=== PATIENT | male | born 1975 | race Hispanic/Latino ===

== ENCOUNTER 2018-04-12 07:15 | Day surgery (SDC) | payer BC ==
[2018-04-11 08:33] VITALS: BMI 29.5
[2018-04-12] MEDS ORDERED: Midazolam 2 MG/2 ML VIAL ONE (08:49)
[2018-04-12] MEDS ORDERED: ceFAZolin IV 1 gm in Dextrose 1 GM/50 ML BAG IVPB ONE (08:49)
[2018-04-12] MEDS ORDERED: Lidocaine Hydrochloride 20 ML INJ ONE (08:49)
[2018-04-12] MEDS ORDERED: Propofol 10 mg/ml Inj (20 ML) ONE (09:02)
[2018-04-12] MEDS ORDERED: Oxycodone/Acetaminophen 5/325 mg Tab PO PRN ×2 (09:50)
--- NOTE | 2018-04-12 09:54 | PCM.SURG1 ---
Surgeon's Initial Post Op Note - Surgeon's Notes Surgeon: Mauricio Corbett MD Security Trainer: Davis Winters PA-C Type of Anesthesia: IV Sedation Anesthesia Administered By: Sari Sanches CRNA/Clay WEBBER Pre-Operative Diagnosis: Left hand third digit extensor tendon rupture Operative Findings: see complete operative report Post-Operative Diagnosis: as above Operation Performed: Left hand third digit extensor tendon repair and pinning Specimen/Specimens Removed: none Estimated Blood Loss: EBL {In ML}: 0 Blood Products Given: N/A Drains Used: No Drains Post-Op Condition: Good Date of Surgery/Procedure: 04/12/18 Time of Surgery/Procedure: 09:05
[2018-04-12 10:12] VITALS: O2SAT 100
[2018-04-12 10:36] VITALS: TEMP 97.6
[2018-04-12 12:04] VITALS: BP 124/80; PULSE 59; RESP 18
--- NOTE | 2018-04-12 14:12 | RAD ---
Date of service: 04/12/2018 PROCEDURE: Intraoperative Fluoroscopy. HISTORY: EXTENSOR MUSCLE INJURY LT. MIDDLE FINGER FINDINGS: Fluoroscopic assistance was provided. Fluoroscopy time = 6.0 sec. Radiation dose = 0.04 mGy. Please refer to the operative report from [facility].
--- NOTE | 2018-04-15 20:40 | OP ---
PROCEDURE DATE: 04/12/2018 SURGEON: Mauricio Corbett MD. MAINTENANCE JOURNEYMAN: HARRIS Cannon. PREOPERATIVE DIAGNOSES: 1. Left third digit extensor tendon rupture. 2. Left third digit interphalangeal joint subluxation. POSTOPERATIVE DIAGNOSES: 1. Left third digit extensor tendon rupture. 2. Left third digit interphalangeal joint subluxation. PROCEDURES: 1. Extensor tendon primary repair, 40560. 2. Open reduction and pinning of the left third digit interphalangeal joint, 16998. 3. Extensor tendon tenolysis of the third digit, 29590. ANESTHESIA: Local with IV sedation. ESTIMATED BLOOD LOSS: Minimal. COMPLICATIONS: None. DISPOSITION: Stable to recovery room. DESCRIPTION OF PROCEDURE: The patient was brought to the operating room and placed supine on the operating room table. After adequate regional anesthesia was given and prophylactic antibiotics, a well-padded non-sterile tourniquet was placed in the patient's left upper extremity. The entire extremity was then prepped and draped in standard surgical fashion and a time-out was performed. The left arm was elevated and exsanguinated, and the tourniquet was inflated to 250 mmHg. Next, dorsal incision over the distal interphalangeal joint was outlined. An incision was made to the skin only. All superficial veins were cauterized. Dissection was carried out to identify the extensor tendon of the digit. There was a full rupture of the extensor tendon at the level of the DIP and retraction. [place] was used to free up the extensor tendon from scarring of the skin and soft tissues. Tenolysis was performed with tenotomy scissors to the level of the MCP joint. The extensor tendon was then retracted and pulled back to its origin of the distal phalanx. The dorsal interphalangeal joint was then exposed and found to be subluxed. It was reduced dorsally and held in place for fluoroscopic guidance. A 2.8 mm K-wire was advanced across the joint from distal to the proximal phalanx. Joint was well reduced and congruent. The wire was cut short protruding through the skin and bent. Next, the extensor tendon repair was repaired primarily to its stump under distal phalanx using multiple 4-0 Vicryl sutures in horizontal configuration. There is no gapping at the repair site. The tourniquet was deflated. Hemostasis was obtained. Skin was then closed with 4-0 nylon interrupted sutures. Sterile dressing was applied consisting of fluffs, 4x4s, Xeroform, and volar digital splint. The patient tolerated the procedure well and was returned to recovery room in excellent condition. Mauricio Corbett MD
== END 2018-04-12 11:26 | disposition home or self-care (01) ==
LOC: C.SDS 07:15
PROVIDERS: ATTEND Orthopaedic Surgery
DX: M66.242 Spontaneous rupture of extensor tendons, left hand (principal); S63.22 Subluxation of unspecified interphalangeal joint of finger
CPT/HCPCS: 26433; 26445; C1713; J2250; J2704; J3010